=== PATIENT | female | born 1995 | race African-American/Black ===

== ENCOUNTER 2018-01-08 01:18 | Emergency (ER) | payer OTHER ==
[~2018-01-08] VITALS: Ht 177.8 cm; Wt 68.0 kg
[2018-01-08] MEDS ORDERED: ONDANSETRON ODT 4 MG TAB.RAPDIS ONE (01:35)
[2018-01-08] MEDS ORDERED: IV NORMAL SALINE 1,000ML 1,000 ML IV ONE (01:45)
[2018-01-08] MEDS ORDERED: ONDANSETRON ODT 4 MG TAB.RAPDIS PO ONE (01:45)
--- NOTE | 2018-01-08 01:48 | PHYS DOC ---
Adult General Chief Complaint Chief Complaint: MECHANICAL FALL HPI HPI Patient is a 22 year old female who presents with complaint of left thigh and right hip pain. 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 The patient came upon a slope during pursuit and states that she stepped awkwardly, causing immediate pain to the anterior and lateral aspect of the left thigh. Patient also states she fell onto the left lower extremity with her foot bent back behind her. The patient was brought to the emergency department by EMS. Patient was given Zofran and fentanyl prior to arrival with mild improvement in symptoms. Patient currently rates her pain as 8 out of 10. Patient states that the pain worsens with movement. Patient denies any other injuries. The patient states that she has polycystic ovarian syndrome and does not remember when she last had her period. Review of Systems Review of Systems Constitutional: Denies fever or chills [] Eyes: Denies change in visual acuity, redness, or eye pain [] HENT: Denies nasal congestion or sore throat [] Respiratory: Denies cough or shortness of breath [] Cardiovascular: Denies chest pain or edema[] GI: Denies abdominal pain, nausea, vomiting, bloody stools or diarrhea [] : Denies dysuria or hematuria [] Musculoskeletal: Left thigh pain, right hip pain[] Integument: Denies rash or skin lesions [] Neurologic: Denies headache, focal weakness or sensory changes [] All other systems were reviewed and found to be within normal limits, except as documented in this note. Current Medications Current Medications Current Medications Medications (Trade) Dose Ordered Sig/Sarah Start Time Stop Time Status Last Admin Dose Admin Ondansetron HCl (Zofran Odt) 4 mg STK-MED ONCE 01/08/18 01:35 01/08/18 01:36 DC Physical Exam Physical Exam Constitutional: Alert, afebrile, appears in [id number] discomfort. [] HENT: Normocephalic, atraumatic, bilateral external ears normal, oropharynx moist, no oral exudates, nose normal. [] Eyes: PERRLA, EOMI, conjunctiva normal, no discharge. [] Neck: Normal range of motion, no tenderness, supple, no stridor. [] Cardiovascular:Heart rate regular rhythm, no murmur [] Lungs & Thorax: Bilateral breath sounds clear to auscultation [] Abdomen: Bowel sounds normal, soft, no tenderness, no masses, no pulsatile masses. [] Skin: Warm, dry, no erythema, no rash. [] Back: No tenderness, no CVA tenderness. [] Extremities: No obvious deformity to left thigh or right hip, left patella appears in normal position, range of motion intact in left knee and right hip, tender to palpation along mid to distal thigh at the anterior and lateral aspect , right greater trochanteric tenderness to palpation, pulses 2+ distal to affected areas. [] Neurologic: Alert and oriented X 3, normal motor function, normal sensory function, no focal deficits noted. [] Current Patient Data Vital Signs Vital Signs Date Time Temp Pulse Resp B/P (MAP) Pulse Ox O2 Delivery O2 Flow Rate FiO2 01/08/18 01:20 97.7 118 20 98 Room Air Lab Results Laboratory Tests Test 01/08/18 00:52 Bedside Urine HCG, Qualitative hcg negative Current Medications Medications (Trade) Dose Ordered Sig/Sarah Route PRN Reason Start Time Stop Time Status Last Admin Dose Admin Ondansetron HCl (Zofran Odt) 4 mg STK-MED ONCE .ROUTE 01/08/18 01:35 01/08/18 01:36 DC Sodium Chloride 1,000 ml @ 1,000 mls/hr 1X ONCE IV 01/08/18 01:45 01/08/18 02:44 01/08/18 01:44 Ondansetron HCl (Zofran Odt) 4 mg 1X ONCE PO 01/08/18 01:45 01/08/18 01:47 DC 01/08/18 01:43 EKG EKG Not performed[] Radiology/Procedures Radiology/Procedures Two-view left femur x-ray interpreted by me: Normal alignment, no fractures, normal soft tissue One view AP pelvis and 2 view right hip x-rays interpreted by me: Normal alignment, no fractures, normal soft tissue[] Course & Med Decision Making Course & Med Decision Making Pertinent Labs and Imaging studies reviewed. (See chart for details) X-rays are negative. The patient's symptoms appear consistent with a left quadriceps strain and right hip contusion. Patient treated with Flexeril and ibuprofen for pain. Patient also given IV fluids and Zofran in the emergency department. Patient will continue on outpatient treatment with Flexeril and ibuprofen. Recommended weightbearing as tolerated and recommended follow-up in one week with primary doctor for reevaluation. Advised return to emergency department for any worsening symptoms. Patient voiced understanding and in agreement with treatment plan. Dragon Disclaimer Dragon Disclaimer This electronic medical record was generated, in whole or in part, using a voice recognition dictation system. Departure Departure: Impression: Primary Impression: Quadriceps muscle strain Additional Impression: Contusion of right hip Disposition: HOME, SELF-CARE Condition: IMPROVED Patient Instructions: Contusion, Quadriceps Strain with Rehab-Sports[facility] Additional Instructions: Follow-up with your primary doctor in 1 week for reevaluation. Return to emergency department for any worsening symptoms. Scripts Ibuprofen (IBUPROFEN) 600 Mg Tablet 600 MG PO Q6HRS PRN for PAIN, #30 TAB Prov: DEBBIE ZHOU MD 01/08/18 Cyclobenzaprine Hcl (CYCLOBENZAPRINE HCL) 10 Mg Tablet 1 TAB PO TID PRN for MUSCLE SPASMS, #30 TAB Prov: DEBBIE ZHOU MD 01/08/18 Problem Qualifiers Primary Impression: Quadriceps muscle strain Encounter type: initial encounter Laterality: left Qualified Codes: S76.112A - Strain of left quadriceps muscle, fascia and tendon, initial encounter Additional Impression: Contusion of right hip Encounter type: initial encounter Qualified Codes: S70.01XA - Contusion of right hip, initial encounter DEBBIE ZHOU MD January 08, 2018 01:48
[2018-01-08] MEDS ORDERED: CYCLOBENZAPRINE 10 MG TABLET. PO ONE (02:15)
[2018-01-08] MEDS ORDERED: IBUPROFEN 600 MG TABLET. PO ONE (02:15)
[2018-01-08] MEDS ORDERED: CYCL-331 PO (02:19)
[2018-01-08] MEDS ORDERED: IBUP600T16 PO (02:19)
[2018-01-08 02:30] VITALS: BP 134/64
--- NOTE | 2018-01-08 03:22 | RAD ---
AP pelvis and right hip AP and frog-leg lateral x-rays HISTORY: Right hip pain fall while running. FINDINGS: No fracture, dislocation or arthritic change of the right hip. The soft tissues are unremarkable. Mild arthritic change of the pubic symphysis. Soft tissues unremarkable. IMPRESSION: No acute osseous injury. Left femur AP lateral x-rays HISTORY: Left upper thigh pain fall while running. FINDINGS: No fracture or dislocation of the knee. The soft tissues are unremarkable. IMPRESSION: No acute osseous injury. Electronically signed by: Joe Brasher MD (01/08/2018 3:19 AM) [id number]
== END 2018-01-08 02:30 | disposition home or self-care (01) ==
LOC: ER 01:18
DX: S76.112A Strain of left quadriceps muscle, fascia and tendon, initial encounter (principal); S70.01XA Contusion of right hip, initial encounter; E28.2 Polycystic ovarian syndrome; W19.XXXA Unspecified fall, initial encounter; Y93.02 Activity, running; Y92.89 Other specified places as the place of occurrence of the external cause; Y99.8 Other external cause status
CPT/HCPCS: 73502; 73552; 81025; 99284; Q0162; J7030